=== PATIENT | male | born 1955 | race Two or more races ===

== ENCOUNTER 2023-02-26 14:58 | Inpatient (IN) | payer MEDICARE, MEDICAID ==
[~2023-02-26] VITALS: Ht 185.4 cm; Wt 99.9 kg
[2023-02-26] MEDS ORDERED: ALBUTEROL SULF 2.5 MG/0.5ML(0.5%) NEB SOLN NEB ONE (15:30)
[2023-02-26] MEDS ORDERED: IPRATROPIUM BROM 0.5 MG/2.5ML INH SOL NEB ONE (15:30)
[2023-02-26] MEDS ORDERED: methylPREDNISolone SOD SUCC 125 MG/2 ML VL IV ONE (15:45)
[2023-02-26 15:47] LABS: Mean Corpuscular Hgb Conc. 34.1 g/dL (32.0-36.0); Red Cell Distribution Width 14.5 % (11.8-14.3); White Blood Cell 11.3 10^3/uL (4.4-10.8)
[2023-02-26 15:48] LABS: Basophils # (auto) 0.1 10 ^3/uL (0-0.2); Basophils % (auto) 0.6 % (0.0-2.0); Eosinophils # (auto) 0 10 ^3/uL (0-0.8); Eosinophils % (auto) 0.1 % (0.0-7.0); Hemoglobin 19.2 g/dL (13.5-17.5); Lymphocytes # (auto) 0.8 10 ^3/uL (0.4-5.4); Lymphocytes % (auto) 7.5 % (10.0-50.0); Monocytes # (auto) 0.8 10 ^3/uL (0-1.3); Monocytes % (auto) 7.1 % (0.0-12.0); Neutrophils # (auto) 9.6 10 ^3/uL (1.6-8.6); Neutrophils % (auto) 84.7 % (37.0-80.0); Nucleated Red Blood Cells % 0.1 %; Red Blood Cells 5.81 10^6/uL (4.5-5.90)
[2023-02-26 16:13] LABS: Albumin 4.9 g/dL (3.4-5.0); Anion Gap 8 (5-15); Blood Alcohol < 3.0 mg/dL (0-5); Blood Urea Nitrogen 21 mg/dL (7-18); Calcium 9.7 mg/dL (8.5-10.1); Carbon Dioxide 26 mmol/L (21-32); Chloride 104 mmol/L (98-107); Glucose 132 mg/dL (74-106); Sodium 138 mmol/L (136-145)
[2023-02-26 16:17] LABS: Alanine Aminotransferase 32 U/L (16-61); Alkaline Phosphatase 71 U/L (45-117); Aspartate Aminotransferase 35 U/L (15-37); BUN/Creatinine Ratio 18.8 (10.0-20.0); Bilirubin, Total 1.2 mg/dL (0.2-1.0); CRP High Sensitivity 0.36 mg/dL (< 0.3); GFR African American 84 mL/min; GFR Non-African American 69 mL/min
[2023-02-26 16:26] LABS: Hematocrit 56.4 % (41.0-53.0)
[2023-02-26] MEDS ORDERED: IOHEXOL 300 MG/ML 100ML BOTTLE IJ ONE (16:51)
[2023-02-26 18:54] LABS: Urine Bacteria FEW /hpf (None Seen); Urine Blood 1+ /uL (Negative); Urine Mucus FEW (None Seen); Urine WBC 1 /hpf (0 - 3)
[2023-02-26 18:57] LABS: Urine Specific Gravity > 1.050 (1.001-1.035)
[2023-02-26] MEDS ORDERED: cefTRIAXone 1GM/50ML D5W 50 ML IV ONE (21:30)
[2023-02-26] MEDS ORDERED: FINASTERIDE 5 MG TAB PO ONE (23:00)
[2023-02-26] MEDS ORDERED: TAMSULOSIN HYDROCHLORIDE 0.4 MG CAP PO ONE (23:00)
[2023-02-27 00:46] LABS: INR 1.03 (0.9-1.15)
[2023-02-27 00:54] LABS: Bilirubin, Direct 0.3 mg/dL (0-0.2); Bilirubin, Total 1.1 mg/dL (0.2-1.0)
[2023-02-27 05:35] LABS: Basophils # (auto) 0 10 ^3/uL (0-0.2); Basophils % (auto) 0.1 % (0.0-2.0); Eosinophils # (auto) 0 10 ^3/uL (0-0.8); Hemoglobin 19.9 g/dL (13.5-17.5); Lymphocytes # (auto) 0.6 10 ^3/uL (0.4-5.4); Lymphocytes % (auto) 3.8 % (10.0-50.0); Mean Corpuscular Hemoglobin 33.7 pg (28.0-32.0); Mean Corpuscular Hgb Conc. 34.7 g/dL (32.0-36.0); Mean Corpuscular Volume 96.9 fL (80.0-100.0); Monocytes # (auto) 0.6 10 ^3/uL (0-1.3); Monocytes % (auto) 3.5 % (0.0-12.0); Neutrophils # (auto) 15.1 10 ^3/uL (1.6-8.6); Neutrophils % (auto) 92.6 % (37.0-80.0); Nucleated Red Blood Cells % 0.3 %; Red Cell Distribution Width 14.3 % (11.8-14.3); White Blood Cell 16.3 10^3/uL (4.4-10.8)
[2023-02-27 05:38] LABS: Hematocrit 57.2 % (41.0-53.0)
[2023-02-27] MEDS ORDERED: hydrALAZINE HCL 20 MG/ML VL IV PRN (05:45)
[2023-02-27] MEDS ORDERED: LABETALOL HCL 5 MG/ML 4ML SYRINGE IV PRN (05:45)
[2023-02-27] MEDS ORDERED: ACETAMINOPHEN 325 MG TAB PO PRN (05:45)
[2023-02-27] MEDS ORDERED: HYDROmorphone HCL 2 MG/ML VL/or syr IV PRN (05:45)
[2023-02-27 05:59] LABS: Potassium 3.7 mmol/L (3.5-5.1)
[2023-02-27 06:08] LABS: Albumin 4.6 g/dL (3.4-5.0); Bilirubin, Total 1.2 mg/dL (0.2-1.0); Calcium 9.5 mg/dL (8.5-10.1); Total Protein 8.3 g/dL (6.4-8.2)
[2023-02-27] MEDS: HYDROcodone-ACET 5/325MG TAB PO PRN ×2 (06:42→20:47)
[2023-02-27] MEDS: cefTRIAXone 1GM/50ML D5W 50 ML IV SCH (09:35)
[2023-02-27] MEDS: AZITHROMYCIN 500MG/ 250ML 250 ML IV SCH (10:31)
[2023-02-27] MEDS: FINASTERIDE 5 MG TAB PO SCH (10:32)
[2023-02-27 18:30] VITALS: BP 148/92
[2023-02-27] MEDS: TAMSULOSIN HYDROCHLORIDE 0.4 MG CAP PO SCH (18:36)
[2023-02-27 18:51] VITALS: BP 148/92
[2023-02-27 22:00] VITALS: BP 156/107
[2023-02-28] MEDS: HYDROcodone-ACET 5/325MG TAB PO PRN ×2 (01:40→20:00)
[2023-02-28 05:00] VITALS: BP 146/83
[2023-02-28 09:00] VITALS: BP 139/89
[2023-02-28] MEDS: PANTOPRAZOLE 40 MG/10 ML VIAL INJ IV SCH (09:17)
[2023-02-28] MEDS: cefTRIAXone 1GM/50ML D5W 50 ML IV SCH (09:18)
[2023-02-28] MEDS ORDERED: TRAZ-228 PO (09:31)
[2023-02-28] MEDS ORDERED: ALBU108A5 IN (09:31)
[2023-02-28] MEDS ORDERED: ASPI1TAB20 PO (09:41)
[2023-02-28] MEDS ORDERED: TIOT17SP IN (09:41)
[2023-02-28] MEDS ORDERED: IPRIH INH (09:41)
[2023-02-28] MEDS ORDERED: LOSA25TA15 PO (09:41)
[2023-02-28] MEDS ORDERED: FLUO1TAB12 PO (09:41)
[2023-02-28] MEDS ORDERED: FLUT250M2 INH (09:41)
[2023-02-28] MEDS: AZITHROMYCIN 500MG/ 250ML 250 ML IV SCH (09:42)
[2023-02-28] MEDS: FINASTERIDE 5 MG TAB PO SCH (10:00)
[2023-02-28] MEDS: SUCRALFATE 1 GM/10 ML ORAL SUSP PO SCH ×3 (12:12→22:56)
[2023-02-28 13:00] VITALS: BP 143/87
[2023-02-28 17:00] VITALS: BP 134/89
[2023-02-28] MEDS: TAMSULOSIN HYDROCHLORIDE 0.4 MG CAP PO SCH (17:57)
[2023-02-28 22:00] VITALS: BP 107/64
[2023-03-01 05:00] VITALS: BP 138/88
[2023-03-01] MEDS: SUCRALFATE 1 GM/10 ML ORAL SUSP PO SCH ×4 (06:15→20:54)
[2023-03-01] MEDS: HYDROcodone-ACET 5/325MG TAB PO PRN ×2 (06:15→20:54)
[2023-03-01 08:50] VITALS: BP 131/84
[2023-03-01] MEDS: cefTRIAXone 1GM/50ML D5W 50 ML IV SCH (09:20)
[2023-03-01] MEDS: PANTOPRAZOLE 40 MG/10 ML VIAL INJ IV SCH (09:20)
[2023-03-01] MEDS: AZITHROMYCIN 500MG/ 250ML 250 ML IV SCH (09:21)
[2023-03-01] MEDS: FINASTERIDE 5 MG TAB PO SCH (09:22)
[2023-03-01] MEDS: ASPirin 81 mg TAB PO SCH (10:46)
[2023-03-01] MEDS: FLUoxetine HCL 10 MG CAP PO SCH (10:47)
[2023-03-01] MEDS: LOSARTAN POTASSIUM 25 MG TAB PO SCH (10:50)
[2023-03-01 13:00] VITALS: BP 145/87
[2023-03-01 17:00] VITALS: BP 133/77
[2023-03-01] MEDS: TAMSULOSIN HYDROCHLORIDE 0.4 MG CAP PO SCH (17:12)
[2023-03-01] MEDS: traZODone HCL 50 MG TAB PO SCH (20:54)
[2023-03-01 22:00] VITALS: BP 117/71
[2023-03-02 05:00] VITALS: BP 107/77
[2023-03-02] MEDS: SUCRALFATE 1 GM/10 ML ORAL SUSP PO SCH ×4 (06:18→20:30)
[2023-03-02] MEDS: HYDROcodone-ACET 5/325MG TAB PO PRN ×2 (06:18→20:31)
[2023-03-02 09:12] VITALS: BP 123/83
[2023-03-02] MEDS: PANTOPRAZOLE 40 MG/10 ML VIAL INJ IV SCH (09:33)
[2023-03-02] MEDS: FINASTERIDE 5 MG TAB PO SCH (09:34)
[2023-03-02] MEDS: cefTRIAXone 1GM/50ML D5W 50 ML IV SCH (09:34)
[2023-03-02] MEDS: ASPirin 81 mg TAB PO SCH (09:34)
[2023-03-02] MEDS: FLUoxetine HCL 10 MG CAP PO SCH (09:34)
[2023-03-02] MEDS: LOSARTAN POTASSIUM 25 MG TAB PO SCH (09:34)
[2023-03-02] MEDS: AZITHROMYCIN 500MG/ 250ML 250 ML IV SCH (10:24)
[2023-03-02 13:50] VITALS: BP 135/88
[2023-03-02 16:56] VITALS: BP 129/76
[2023-03-02] MEDS: TAMSULOSIN HYDROCHLORIDE 0.4 MG CAP PO SCH (17:47)
[2023-03-02] MEDS: traZODone HCL 50 MG TAB PO SCH (20:30)
[2023-03-02 22:00] VITALS: BP 122/76
[2023-03-03 05:00] VITALS: BP 122/86
[2023-03-03] MEDS: HYDROcodone-ACET 5/325MG TAB PO PRN (06:12)
[2023-03-03] MEDS: SUCRALFATE 1 GM/10 ML ORAL SUSP PO SCH ×4 (06:12→21:00)
[2023-03-03] MEDS: PANTOPRAZOLE 40 MG/10 ML VIAL INJ IV SCH (08:01)
[2023-03-03] MEDS: cefTRIAXone 1GM/50ML D5W 50 ML IV SCH (08:01)
[2023-03-03] MEDS: FLUoxetine HCL 10 MG CAP PO SCH (08:02)
[2023-03-03] MEDS: ASPirin 81 mg TAB PO SCH (08:02)
[2023-03-03] MEDS: LOSARTAN POTASSIUM 25 MG TAB PO SCH (08:02)
[2023-03-03] MEDS: FINASTERIDE 5 MG TAB PO SCH (08:02)
[2023-03-03 09:00] VITALS: BP 144/96
[2023-03-03] MEDS: AZITHROMYCIN 500MG/ 250ML 250 ML IV SCH (09:00)
[2023-03-03 13:00] VITALS: BP 125/78
[2023-03-03 14:05] VITALS: BP 125/78
[2023-03-03 17:00] VITALS: BP 123/79
[2023-03-03] MEDS: TAMSULOSIN HYDROCHLORIDE 0.4 MG CAP PO SCH (17:35)
[2023-03-03] MEDS: traZODone HCL 50 MG TAB PO SCH (21:01)
[2023-03-03 22:00] VITALS: BP 115/68
[2023-03-04 05:19] VITALS: BP 132/86
[2023-03-04] MEDS: SUCRALFATE 1 GM/10 ML ORAL SUSP PO SCH (06:09)
== END 2023-03-04 06:13 | DRG 720 ==
LOC: EDBD 14:58 → ER 15:03 → OVERFLOW 02-27 02:09 → CENTRAL 02-27 17:54
PROVIDERS: ADMIT Nurse Practitioner; ATTEND Family Medicine
PROC: 05HA33Z Insertion of Infusion Device into Left Brachial Vein, Percutaneous Approach (ICD-10-PCS; principal; 2023-03-01)
PROC: B54NZZA Ultrasonography of Left Upper Extremity Veins, Guidance (ICD-10-PCS; 2023-03-01)
DX: A41.9 Sepsis, unspecified organism (principal); J96.01 Acute respiratory failure with hypoxia; J15.6 Pneumonia due to other Gram-negative bacteria; J44.0 Chronic obstructive pulmonary disease with (acute) lower respiratory infection; J15.9 Unspecified bacterial pneumonia; J44.1 Chronic obstructive pulmonary disease with (acute) exacerbation; R17 Unspecified jaundice; F12.10 Cannabis abuse, uncomplicated; C64.1 Malignant neoplasm of right kidney, except renal pelvis; I10 Essential (primary) hypertension; Z20.822 Contact with and (suspected) exposure to COVID-19; K57.30 Diverticulosis of large intestine without perforation or abscess without bleeding; K62.5 Hemorrhage of anus and rectum; N39.0 Urinary tract infection, site not specified; N40.0 Benign prostatic hyperplasia without lower urinary tract symptoms; R31.29 Other microscopic hematuria; Z85.528 Personal history of other malignant neoplasm of kidney; Z90.5 Acquired absence of kidney; Z82.49 Family history of ischemic heart disease and other diseases of the circulatory system; Z83.3 Family history of diabetes mellitus; H91.90 Unspecified hearing loss, unspecified ear
CPT/HCPCS: 36415; 71045; 74177; 80053; 80320; 81001; 82247; 82248; 82668; 83605; 83615; 83880; 84154; 84484; 85025; 85610; 86141; 87040; 87086; 87426; 93005; 94640; 96365; 96366; 96367; 96375; 97163; C9113; G0378; J0696